=== PATIENT | male | born 1990 | race Caucasian/White ===

== ENCOUNTER 2016-04-20 13:24 | Emergency (ER) | payer OTHER ==
[~2016-04-20] VITALS: Ht 177.8 cm; Wt 84.1 kg
[~2016-04-20 13:24] MED LIST: BENT20TA PO; VIST25CA PO; ZOFR4TAB3 SL
[2016-04-20 13:26] VITALS: BP 130/78; PULSE 88; RESP 20; TEMP 98.4; O2SAT 96
--- NOTE | 2016-04-20 14:38 | PD ---
HPI Chief Complaint: Anxiety Time Seen by Provider: 14:38 Travel History International Travel<30 days: No Contact w/Intl Traveler<30days: No Traveled to known affect area: No History of Present Illness HPI 26-year-old male with history of anxiety, followed by the [facility], presents to the emergency department requesting Ativan for his anxiety. States that right now he is okay but feels as though his anxiety has been increasingly worse lately. Patient states that he used to take Ativan when he was in the [employer] but has not been on it for an extended amount of time. [facility]. Denies any suicidal homicidal ideations. Denies any illicit drug use. He has no other symptoms to report at this time. [facility] Past Medical History Anxiety: Yes Depression: Yes Cardiovascular Problems: Yes (PALPITATIONS) Diminished Hearing: No Social History Alcohol Use: Yes (MOSTLY WEEKEND DRINKING) Tobacco Use: Yes (1/2 ppd) Substance Use: Yes (METHADONE) Allergies-Medications (Allergen,Severity, Reaction): Coded Allergies: No Known Allergies (Unverified , 04/20/16) Reported Meds & Prescriptions Reported Meds & Active Scripts Active No Active Prescriptions or Reported Medications Review of Systems Except as stated in HPI: all other systems reviewed are Neg Physical Exam Narrative GENERAL: Well-nourished, well-developed patient, ambulatory and in no acute distress SKIN: Warm and dry. HEAD: Normocephalic. EYES: No scleral icterus. No injection or drainage. NECK: Supple, trachea midline. No JVD or lymphadenopathy. CARDIOVASCULAR: Regular rate and rhythm without murmurs, gallops, or rubs. RESPIRATORY: Breath sounds equal bilaterally. No accessory muscle use. GASTROINTESTINAL: Abdomen soft, non-tender, nondistended. MUSCULOSKELETAL: No cyanosis, or edema. BACK: Nontender without obvious deformity. No CVA tenderness. Data Data Last Documented VS Vital Signs Date Time Temp Pulse Resp B/P Pulse Ox O2 Delivery O2 Flow Rate FiO2 04/20/16 13:26 98.4 88 20 130/78 96 Room Air MDM Medical Decision Making Medical Screen Exam Complete: Yes Emergency Medical Condition: Yes Medical Record Reviewed: Yes Differential Diagnosis Anxiety versus mood disorder versus personality disorder versus adjustment reaction disorder v Narrative Course 26-year-old male presents to emergency department requesting Ativan for his anxiety. He has a follow-up appointment at the [facility] and he has not been on Ativan since the [employer] per his report. I explained to him that I would not be refilling or starting him on Ativan as needed for his anxiety here in the emergency department offered him Vistaril. He became very angry with me and told me "just give me gabapentin." I said I would not be giving him gabapentin for his anxiety either and the best thing for him to do the [facility]up [facility]. He states he does not want the Vistaril and he wanted to leave. He'll be discharged at this time. Diagnosis Primary Impression: Anxiety with limited-symptom attacks Referrals: [facility] (Out patient) Primary Care Physician Patient Instructions: Anxiety (ED), General Instructions Additional Instructions: It is important that you keep your appointment with the [facility] Contact today to see if you can get in before next week Return immediately to the emergency department with any acute worsening symptoms Med/Other Pt SpecificInfo: No Change to Meds Scripts No Active Prescriptions or Reported Meds Disposition: 01 DISCHARGE HOME Condition: Stable Tasha Ponce Apr 20, 2016 14:38
== END 2016-04-20 16:56 | disposition home or self-care (01) ==
LOC: NETRI 13:24
DX: F41.9 Anxiety disorder, unspecified (principal)
CPT/HCPCS: 99282

== ENCOUNTER 2016-06-16 14:32 | Emergency (ER) | payer OTHER ==
[~2016-06-16] VITALS: Ht 177.8 cm; Wt 89.5 kg
[2016-06-16 14:33] VITALS: BP 131/94; PULSE 99; RESP 18; TEMP 98.1; O2SAT 98
--- NOTE | 2016-06-16 14:43 | PD ---
Physical Exam Time Seen by Provider: 14:41 Narrative 26yo M requesting refill on Gabapentin rx. Last took yesterday. Takes for alcohol DT's. No other complaints. Patient stable. Patient seen in triage. Awaiting bed placement. Data Data Last Documented VS Vital Signs Date Time Temp Pulse Resp B/P Pulse Ox O2 Delivery O2 Flow Rate FiO2 06/16/16 14:33 98.1 99 18 131/94 98 MDM Supervised Visit with BLAKE: No Scripts No Active Prescriptions or Reported Meds Soumya Epstein Jun 16, 2016 14:43
--- NOTE | 2016-06-16 16:17 | PD ---
HPI . needs refill on gabapentin Chief Complaint: Medication Refill Request Time Seen by Provider: 16:12 Travel History International Travel<30 days: No Contact w/Intl Traveler<30days: No Traveled to known affect area: No History of Present Illness HPI 26 yr old male with chronic pain and hx of etoh abuse using gabapentin for DTs and chronic pain requesting refill on gabapentin. He says he ran out yesterday. He is trying to find a PCP as he just moved from [place]. He has no other complaints. PFSH Past Medical History Anxiety: Yes Depression: Yes Cardiovascular Problems: Yes (PALPITATIONS) Diminished Hearing: No Social History Alcohol Use: Yes (MOSTLY WEEKEND DRINKING) Tobacco Use: Yes (/ ppd) Substance Use: Yes (METHADONE) Allergies-Medications (Allergen,Severity, Reaction): Coded Allergies: No Known Allergies (Unverified , 06/16/16) Reported Meds & Prescriptions Reported Meds & Active Scripts Active Gabapentin 600 Mg Tab 600 Mg PO BID Reported Gabapentin 800 Mg Tab 800 Mg PO TID Review of Systems General / Constitutional: No: Fever Eyes: No: Visual changes HENT: No: Headaches Cardiovascular: No: Chest Pain or Discomfort Respiratory: No: Shortness of Breath Gastrointestinal: No: Abdominal Pain Genitourinary: No: Dysuria Musculoskeletal: No: Pain Skin: No Rash Neurologic: No: Weakness Psychiatric: No: Depression Endocrine: No: Polydipsia Hematologic/Lymphatic: No: Easy Bruising Physical Exam Narrative GENERAL: AAO x 3, no acute distress, Well-nourished, well-developed patient. SKIN: Warm and dry. No visible rashes or bruising. HEAD: Normocephalic and atraumatic. EYES: No scleral icterus. No injection or drainage. ENT: No nasal drainage noted. Mucous membranes pink. Airway patent. NECK: Supple, trachea midline. No JVD. CARDIOVASCULAR: Regular rate and rhythm without murmurs, gallops, or rubs. RESPIRATORY: Breath sounds equal bilaterally. No accessory muscle use. No rhonchi or rales. GASTROINTESTINAL: Visual inspection normal EXTREMITIES: No cyanosis or edema. BACK: Nontender without obvious deformity. No CVA tenderness. PSYCH: AAO x 3, normal affect. Data Data Last Documented VS Vital Signs Date Time Temp Pulse Resp B/P Pulse Ox O2 Delivery O2 Flow Rate FiO2 06/16/16 14:33 98.1 99 18 131/94 98 [facility] Medical Decision Making Medical Screen Exam Complete: Yes Emergency Medical Condition: Yes Medical Record Reviewed: Yes Differential Diagnosis medication refill, chronic pain, hx of DTs Narrative Course 26 yr old male with chronic pain and hx of etoh abuse using gabapentin for DTs and chronic pain requesting refill on gabapentin. He says he ran out yesterday. He is trying to find a PCP as he just moved from [place]. He has no other complaints. Patient seen and examined. I've explained to him that I will provide him with a short course of gabapentin. Ultimately he will need to establish with a primary care provider for further refills. He is hemodynamically stable and in no signs of distress. Actually has no complaints of pain etc. only requires a refill. Patient verbalized understanding of instructions, questions were answered, and thanked me for their care. I advised them if their condition worsens, please return to the nearest emergency room for further care. Diagnosis Primary Impression: Medication refill Patient Instructions: General Instructions Additional Instructions: Please return to emergency department if your symptoms return or worsen. Follow up with your primary care provider. Take medications as prescribed. Please establish with a primary care provider for further refills. Med/Other Pt SpecificInfo: Prescription(s) given Scripts Gabapentin 600 Mg [id number] Mg PO BID #20 TAB Ref 0 Prov:RomarioKaylyn DO 06/16/16 Disposition: 01 DISCHARGE HOME Condition: Stable Nikole Cordova Jun 16, 2016 16:17
[2016-06-16] MEDS ORDERED: GABA600T PO (16:19)
[2016-06-16] MEDS ORDERED: GABA800T PO (16:26)
== END 2016-06-16 16:37 | disposition home or self-care (01) ==
LOC: NEPK 14:32
DX: G89.29 Other chronic pain (principal); Z76.0 Encounter for issue of repeat prescription; F10.10 Alcohol abuse, uncomplicated; F17.210 Nicotine dependence, cigarettes, uncomplicated
CPT/HCPCS: 99281

== ENCOUNTER 2016-06-24 09:32 | Emergency (ER) | payer OTHER ==
[~2016-06-24] VITALS: Ht 177.8 cm; Wt 89.0 kg
[~2016-06-24 09:32] MED LIST changes: -BENT20TA PO; +GABA600T PO; +GABA800T PO; -VIST25CA PO; -ZOFR4TAB3 SL
[2016-06-24 09:34] VITALS: BP 138/79; PULSE 84; RESP 20; TEMP 98.6; O2SAT 96
[2016-06-24] MEDS ORDERED: GABA600T PO (09:56)
[2016-06-24] MEDS ORDERED: MOME17I EACH NARE (09:56)
--- NOTE | 2016-06-24 09:59 | PD ---
HPI Chief Complaint: Cold / Flu Symptoms Time Seen by Provider: 09:52 Travel History International Travel<30 days: No Contact w/Intl Traveler<30days: No Traveled to known affect area: No History of Present Illness HPI 26-year-old male presents to the emergency Department with complaint of left- sided nasal congestion 4 days. He is also requesting a medication refill on gabapentin; he says he takes it to keep him from drinking alcohol. Denies cough , sore throat, ear pain. Denies fever, chills, nausea, vomiting. Denies sinus pressure. Has not taken any medications or tried any treatments to alleviate his symptoms. No known aggravating or relieving factors. Says he has an appointment with primary care provider in one week and has one day left of his gabapentin. Says his gabapentin was refilled last time he was here. Denies current alcohol use. No known allergies. No medical complaints. No other modifying factors or associated signs and symptoms. PFSH Past Medical History Anxiety: Yes Depression: Yes Cardiovascular Problems: Yes (PALPITATIONS) Diminished Hearing: No Social History Alcohol Use: Yes (MOSTLY WEEKEND DRINKING) Tobacco Use: Yes (1/2 ppd) Substance Use: Yes (METHADONE) Allergies-Medications (Allergen,Severity, Reaction): Coded Allergies: No Known Allergies (Unverified , 06/24/16) Reported Meds & Prescriptions Reported Meds & Active Scripts Active Nasonex Nasal [place] (Mometasone Furoate) 50 Mcg/Act Naspr 2 [place] EACH NARE DAILY PRN Gabapentin 600 Mg Tab 600 Mg PO BID Reported Gabapentin 800 Mg Tab 800 Mg PO TID Review of Systems Except as stated in HPI: all other systems reviewed are Neg Physical Exam Narrative GENERAL: Well-nourished, well-developed male patient, in no acute distress SKIN: Warm and dry. No rash. HEAD: Atraumatic. Normocephalic. No Frontal and maxillary tenderness sinus on palpation. EYES: Pupils equal and round at 3 mm with brisk reaction. No scleral icterus. No injection or drainage. PERRLA. ENT: Mucosa pink and moist. Oropharynx without erythema, exudates, tonsillar edema.. No uvular edema. No uvular, palatal, or tonsillar deviation. Airway patent. Nasal turbinates appear normal without nasal blood, purulent drainage or septal hematoma. EARS: Bilateral pinnae and external canals appear within normal limits. Bilateral tympanic membranes without erythema, dullness or perforation. NECK: Trachea midline. No lymphadenopathy. CARDIOVASCULAR: Regular rate and rhythm. No murmur appreciated. RESPIRATORY: No accessory muscle use. Clear to auscultation. Breath sounds equal bilaterally. GASTROINTESTINAL: Abdomen soft, non-tender, nondistended. Hepatic and splenic margins not palpable. Bowel sounds are active 4 quadrants. MUSCULOSKELETAL: No obvious deformities. No clubbing. No cyanosis. No edema. NEUROLOGICAL: Awake and alert. Oriented 3. No obvious cranial nerve deficits. Motor grossly within normal limits. Normal speech. Moves all extremities. 5/5 strength to all extremities. PSYCHIATRIC: Appropriate mood and affect; insight and judgment normal. Data Data Last Documented VS Vital Signs Date Time Temp Pulse Resp B/P Pulse Ox O2 Delivery O2 Flow Rate FiO2 06/24/16 09:34 98.6 84 20 138/79 96 Room Air MDM Medical Decision Making Medical Screen Exam Complete: Yes Emergency Medical Condition: Yes Medical Record Reviewed: Yes Differential Diagnosis Nasal congestion, allergic rhinitis, sinusitis, medication refill Narrative Course 26-year-old male was left nostril nasal congestion 4 days. He is afebrile and nontoxic-appearing. Denies sinus pressure and there is no maxillary or frontal sinus tenderness on palpation. Patient is also requesting refill on gabapentin. He has an appointment with primary care provider in one week and has one day left of his gabapentin. Nasonex nasal spray and gabapentin prescribed for home. Instructed patient to follow up at PCP appointment as scheduled. Patient verbalizes understanding and agreement with treatment plan. Patient is medically cleared and stable for discharge. Discussed reasons to return to the emergency department. Instructed patient to follow up with primary care provider. Patient agrees with treatment plan. The patients vital signs are stable and the patient is stable for outpatient follow-up and treatment. Patient discharged home, stable and in no acute distress. Diagnosis Primary Impression: Nasal congestion Additional Impression: Medication refill Referrals: Primary Care Physician Patient Instructions: General Instructions, Medication Refill, ED, Sinusitis ( ED) Departure Forms: Tests/Procedures, Work Release Enter return to work date: Jun 24, 2016 Additional Instructions: Nasonex nasal spray as prescribed. Ibuprofen or Tylenol as instructed and as needed for fever/pain [id number] cough and cold medications as directed and as needed for symptom management Get plenty of sleep/rest Drink plenty of fluids to prevent dehydration; popsicles and Gatorade Use an air humidifier/turn off ceiling fans Follow-up with primary care provider Return immediately to the emergency department with worsening of symptoms Med/Other Pt SpecificInfo: Prescription(s) given Scripts Mometasone Nasal [place] (Nasonex Nasal [place])50 Mcg/Act Naspr2 [place] EACH NARE DAILY PRN (NASAL CONGESTION) #1 BOTTLE Ref 0 Prov:Soumya Epstein 06/24/16 Gabapentin 600 Mg [id number] Mg PO BID #20 TAB Ref 0 Prov:Soumya Epstein 06/24/16 Disposition: 01 DISCHARGE HOME Condition: Stable Soumya Epstein Jun 24, 2016 09:58
== END 2016-06-24 10:04 | disposition home or self-care (01) ==
LOC: NEPK 09:32
DX: R09.81 Nasal congestion (principal); F17.200 Nicotine dependence, unspecified, uncomplicated; Z76.0 Encounter for issue of repeat prescription; Z86.59 Personal history of other mental and behavioral disorders; Z86.79 Personal history of other diseases of the circulatory system
CPT/HCPCS: 99283

== ENCOUNTER 2016-07-16 06:30 | Emergency (ER) | payer OTHER ==
[~2016-07-16] VITALS: Ht 177.8 cm; Wt 88.6 kg
[~2016-07-16 06:30] MED LIST changes: +MOME17I EACH NARE
[2016-07-16 06:31] VITALS: BP 139/75; PULSE 90; RESP 20; TEMP 99; O2SAT 97
--- NOTE | 2016-07-16 07:13 | PD ---
HPI Chief Complaint: Cold / Flu Symptoms Time Seen by Provider: 06:58 Travel History International Travel<30 days: No Contact w/Intl Traveler<30days: No Traveled to known affect area: No History of Present Illness HPI 26yo M with no significant PMH presents to the ED with c/o nasal congestion, throat pain, cough, generalized muscle ache. Denies any fever, chest pain, sob , abdominal pain, focal weakness or numbness. Pt is requesting refill for gabapentin. I reviewed his records and he has just been here 06/17/16 and and have gotten refills for gabapentin both times. Informed pt that he has to follow up with his PMD for refill and follow up. Pt states that he has insurance and and informed him that he needs to follow up. PFSH Past Medical History Anxiety: Yes Depression: Yes Cardiovascular Problems: Yes (PALPITATIONS) Diminished Hearing: No Neurologic: Yes (NERVE PAIN) Social History Alcohol Use: Yes (MOSTLY WEEKEND DRINKING) Tobacco Use: Yes (1/2 ppd) Substance Use: Yes (METHADONE) Allergies-Medications (Allergen,Severity, Reaction): Coded Allergies: No Known Allergies (Unverified , 07/16/16) Reported Meds & Prescriptions Reported Meds & Active Scripts Active Nasonex Nasal [place] (Mometasone Furoate) 50 Mcg/Act Naspr 2 [place] EACH NARE DAILY PRN Gabapentin 600 Mg Tab 600 Mg PO BID Reported Gabapentin 800 Mg Tab 800 Mg PO TID Review of Systems Except as stated in HPI: all other systems reviewed are Neg Physical Exam Narrative GENERAL: 26yo M not in distress. SKIN: Focused skin assessment warm/dry. HEAD: Atraumatic. Normocephalic. EYES: Pupils equal and round at 3mm bilaterally. No scleral icterus. No injection or drainage. ENT: Throat: Clear. Uvula midline. No erythema or exudate. Ears: +Cerumen impaction. NECK: Trachea midline. No JVD. CARDIOVASCULAR: Regular rate and rhythm. No murmur appreciated. RESPIRATORY: No accessory muscle use. Clear to auscultation. Breath sounds equal bilaterally. GASTROINTESTINAL: Abdomen soft, non-tender, nondistended. MUSCULOSKELETAL: No obvious deformities. No clubbing. No cyanosis. No edema. NEUROLOGICAL: Awake and alert. No obvious cranial nerve deficits. Motor grossly within normal limits. Normal speech. PSYCHIATRIC: Appropriate mood and affect; insight and judgment normal. Data Data Last Documented VS Vital Signs Date Time Temp Pulse Resp B/P Pulse Ox O2 Delivery O2 Flow Rate FiO2 07/16/16 06:31 99.0 90 20 139/75 97 Orders Ondansetron Odt (Zofran Odt) (07/16/16 07:15) Ibuprofen (Motrin) (07/16/16 07:15) Guaifenesin Liq (Robitussin Liq) (07/16/16 07:15) MDM Medical Decision Making Medical Screen Exam Complete: Yes Emergency Medical Condition: Yes Differential Diagnosis URI vs. medication refill vs. flu like symptoms Narrative Course 26yo well appearing male here with URI symptoms. Pt is really more interested in getting his gabapentin refilled. I reviewed his records and he has already had 2 prescriptions from 2 different ED visits just last month. Pt had access to primary care as he stated that he has medicaid and needs to address this in the outpatient setting. Vital signs stable. Pt is afebrile and not in distress. Pt given zofran, ibuprofen and robitussin for symptomatic treatment. Pt reevaluated after medications and feels better. Pt tolerating PO. Return precautions given. Diagnosis Primary Impression: URI (upper respiratory infection) Qualified Code: J06.9 - Upper respiratory tract infection, unspecified type Patient Instructions: General Instructions Departure Forms: Tests/Procedures Additional Instructions: Please follow up with your PMD in 3-7 days. Return to the ED if symptoms worsen. Med/Other Pt SpecificInfo: Prescription(s) given, No Change to Meds Scripts Acetaminophen (Acetaminophen Extra Strength)500 Mg Zpl120 Mg PO Q6H PRN (PAIN SCALE 1 TO 4) #20 TAB Ref 0 Prov:Kaylyn Doss DO 07/16/16 Dextromethorphan Polistirex Liq (Robitussin 12 Hour Cough Liq)30 Mg/5 Ml Sus10 Ml PO Q12H PRN (COUGH) 5 Days Ref 0 Prov:Kaylyn Doss DO 07/16/16 Disposition: 01 DISCHARGE HOME Condition: Stable Kaylyn Doss DO July 16, 2016 07:13
[2016-07-16] MEDS ORDERED: IBUPROFEN 600 MG TAB PO ONE (07:15)
[2016-07-16] MEDS ORDERED: ONDANSETRON ODT 4 MG TAB PO ONE (07:15)
[2016-07-16] MEDS ORDERED: guaiFENesin SOLUTION 200 MG/10 ML CUP PO ONE (07:15)
[2016-07-16] MEDS ORDERED: DEXT1SUS PO (09:03)
[2016-07-16] MEDS ORDERED: ACET500T36 PO (09:03)
== END 2016-07-16 09:13 | disposition home or self-care (01) ==
LOC: NEPE 06:30
DX: J06.9 Acute upper respiratory infection, unspecified (principal); F17.200 Nicotine dependence, unspecified, uncomplicated
CPT/HCPCS: 99283

== ENCOUNTER 2016-10-14 10:09 | Emergency (ER) | payer OTHER ==
[~2016-10-14] VITALS: Ht 180.3 cm; Wt 84.0 kg
[~2016-10-14 10:09] MED LIST changes: +ACET500T36 PO; +DEXT1SUS PO
[2016-10-14 10:14] VITALS: BP 116/59; PULSE 83; RESP 15; TEMP 98.2; O2SAT 98
[2016-10-14] MEDS ORDERED: IBUPROFEN 800 MG TAB PO ONE (10:30)
[2016-10-14] MEDS ORDERED: IBUP800T23 PO (10:33)
--- NOTE | 2016-10-14 10:34 | PD ---
HPI Chief Complaint: Injury Time Seen by Provider: 10:29 Travel History International Travel<30 days: No Contact w/Intl Traveler<30days: No Traveled to known affect area: No History of Present Illness HPI 25-year-old male presents to the emergency department complaint of right wrist pain after wrestling around with somebody and injuring it. Denies paresthesias , loss of sensation to the affected extremity. Has not taken any medications or [place] Symptoms are mild in severity. No known allergies. Has no other medical complaints. No other modifying factors or associated signs and symptoms. PFSH Past Medical History Anxiety: Yes Depression: Yes Cardiovascular Problems: Yes (PALPITATIONS) Diminished Hearing: No Neurologic: Yes (NERVE PAIN) Social History Alcohol Use: Yes (MOSTLY WEEKEND DRINKING) Tobacco Use: Yes (1/2 ppd) Substance Use: Yes (METHADONE) Allergies-Medications (Allergen,Severity, Reaction): Coded Allergies: No Known Allergies (Unverified , 10/14/16) Reported Meds & Prescriptions Reported Meds & Active Scripts Active Ibuprofen 800 Mg Tab 800 Mg PO Q6HR PRN Nasonex Nasal [place] (Mometasone Furoate) 50 Mcg/Act Naspr 2 [place] EACH NARE DAILY PRN Gabapentin 600 Mg Tab 600 Mg PO BID Reported Gabapentin 800 Mg Tab 800 Mg PO TID Review of Systems Except as stated in HPI: all other systems reviewed are Neg Physical Exam Narrative GENERAL: Well-nourished, well-developed male patient, in no acute distress SKIN: Warm and dry. HEAD: Atraumatic. Normocephalic. EYES: Pupils equal and round. No scleral icterus. No injection or drainage. ENT: Mucosa pink and moist. Airway patent. NECK: Trachea midline. CARDIOVASCULAR: Regular rate. RESPIRATORY: No accessory muscle use. GASTROINTESTINAL: Flat. MUSCULOSKELETAL: Right wrist with tenderness on palpation; no erythema ; no edema; full range of motion. Right hand with full range of motion at all joints. Right upper extremity is supple and non-tense with 2+ radial pulse and sensory intact. No obvious deformities. No clubbing. No cyanosis. NEUROLOGICAL: Awake and alert. Oriented 3. No obvious cranial nerve deficits. Motor grossly within normal limits. Normal speech. PSYCHIATRIC: Appropriate mood and affect; insight and judgment normal. Data Data Last Documented VS Vital Signs Date Time Temp Pulse Resp B/P Pulse Ox O2 Delivery O2 Flow Rate FiO2 10/14/16 10:14 98.2 83 15 116/59 98 Orders Wrist, Complete ([id number]) (10/14/16 10:26) Ibuprofen (Motrin) (10/14/16 10:30) MDM Medical Decision Making Medical Screen Exam Complete: Yes Emergency Medical Condition: Yes Medical Record Reviewed: Yes Differential Diagnosis Sprain, fracture, injury Narrative Course 26-year-old male with right wrist injury. Ibuprofen administered in the ER. Ice pack provided. Right wrist x-ray ordered. 1116: Right wrist x-ray concludes: Last 24 hours Impressions Wrist X-Ray 10/14/16 1026 Signed Impressions: Service Date/Time: Friday, October 14, 2016 11:12 - CONCLUSION: Negative trauma study. Mika Funk MD Velcro wrist splint provided for support. Ibuprofen prescribed for home. Instructed patient to follow up with primary care provider. Patient verbalizes understanding and agreement with treatment plan. Patient is medically cleared and stable for discharge. Discussed reasons to return to the emergency department. Patient agrees with treatment plan. The patients vital signs are stable and the patient is stable for outpatient follow-up and treatment. Patient discharged home, stable and in no acute distress. Diagnosis Primary Impression: Right wrist sprain Qualified Code: S63.501A - Sprain of right wrist, initial encounter Referrals: Primary Care Physician Patient Instructions: General Instructions, Wrist Sprain (ED) Departure Forms: Tests/Procedures, Work Release Enter return to work date: Oct 21, 2016 Additional Instructions: Tylenol or ibuprofen as directed and as needed to reduce pain Rest, ice, compress, and elevate extremity to decrease pain and inflammation Elvin wrap for support Wrist Splint for support Avoid aggravating activity; increase activity as tolerated Follow-up with primary care provider Return to the emergency department immediately with worsening symptoms Med/Other Pt SpecificInfo: Prescription(s) given Scripts Ibuprofen 800 Mg [id number] Mg PO Q6HR PRN (PAIN) #30 TAB Ref 0 Prov:Soumya Epstein 10/14/16 Disposition: 01 DISCHARGE HOME Condition: Stable Soumya Epstein Oct 14, 2016 10:34
--- NOTE | 2016-10-14 11:09 | RADRPT ---
EXAM DATE/TIME: 10/14/2016 11:12 [facility] COMPARISON: No previous studies available for comparison. INDICATIONS : Right wrist pain after landing wrong on a fall. MEDICAL HISTORY : None. SURGICAL HISTORY : None. ENCOUNTER: Initial ACUITY: 1 day PAIN SCORE: 10 LOCATION: Right wrist FINDINGS: Three view examination of the right wrist demonstrates no soft tissue swelling, dislocation, or fract ure. The carpal bones are in normal alignment. The joint spaces are maintained. Bony mineralizatio n is normal. CONCLUSION: Negative trauma study. Mika Funk MD on October 14, 2016 at 11:07 Board Certified Radiologist. This report was verified electronically.
== END 2016-10-14 12:04 | disposition home or self-care (01) ==
LOC: NEPK 10:09
DX: S63.501A Unspecified sprain of right wrist, initial encounter (principal); F41.9 Anxiety disorder, unspecified; F32.9 Major depressive disorder, single episode, unspecified; R00.2 Palpitations; F17.200 Nicotine dependence, unspecified, uncomplicated; Y93.72 Activity, wrestling; Z79.899 Other long term (current) drug therapy
CPT/HCPCS: 73110; 99283; L3908

== ENCOUNTER 2016-10-16 16:46 | Emergency (ER) | payer OTHER ==
[~2016-10-16 16:46] MED LIST changes: -ACET500T36 PO; -DEXT1SUS PO; +IBUP800T23 PO
[2016-10-16 16:49] VITALS: BP 134/95; PULSE 73; RESP 15; TEMP 97.9; O2SAT 99
[2016-10-16] MEDS ORDERED: chlordiazePOXIDE 25 MG CAP PO STA (17:55)
[2016-10-16] MEDS ORDERED: SODIUM CHLORIDE 0.9% FLUSH 10 ML FLUSH IVF PRN (18:00)
[2016-10-16 19:24] LABS: AUTOMATED NEUTROPHIL # 3.5 TH/MM3 (1.8-7.7); BASOPHIL # 0.1 TH/MM3 (0-0.2); BASOPHIL % 0.7 % (0.0-2.0); EOSINOPHIL # 0.4 TH/MM3 (0-0.4); EOSINOPHIL % 5.8 % (0.0-4.0); HEMATOCRIT 33.7 % (39.0-51.0); HEMO FLAGS DIFF FINAL; LYMPH % 35.5 % (9.0-44.0); LYMPHOCYTE # 2.5 TH/MM3 (1.0-4.8); MEAN CELL VOLUME 88.6 FL (80.0-100.0); MEAN CORPUSCULAR HEMOGLOBIN 29.6 PG (27.0-34.0); MEAN CORPUSCULAR HGB CONC 33.5 % (32.0-36.0); MONO % 8.5 % (0.0-8.0); NEUT % 49.5 % (16.0-70.0); PLATELET COUNT 140 TH/MM3 (150-450); RED CELL DISTRIBUTION WIDTH 13.6 % (11.6-17.2); WHITE BLOOD COUNT 7.1 TH/MM3 (4.0-11.0)
--- NOTE | 2016-10-16 19:30 | PD ---
HPI Chief Complaint: Seizure Time Seen by Provider: 17:46 Travel History International Travel<30 days: No Contact w/Intl Traveler<30days: No Traveled to known affect area: No History of Present Illness HPI Patient is a 26-year-old male who comes in complaining of seizure activity. He says he has had several seizures over the past 2 days due to benzodiazepine withdrawal. He says he usually takes 2 mg of Xanax several times a day. He has not had a prescription, and has been taking his roommates. However his roommate has run out of the Xanax. He was seen at [facility] 2 days ago and was diagnosed with a scaphoid fracture. He has a splint on his hand. He says he did not tell them about the seizures at that time. He says he is worried about withdrawal. He says he feels unwell and shaky. He denies chest pain or fevers. He denies headache or blurred vision. He denies nausea or vomiting. PFSH Past Medical History Anxiety: Yes Depression: Yes Cardiovascular Problems: Yes (PALPITATIONS) Diminished Hearing: No Medical other: Yes (OPIATES DEPENDENT /ON METHADONE) Neurologic: Yes (NERVE PAIN) Tetanus Vaccination: < 5 Years Influenza Vaccination: No Past Surgical History Surgical History: No Previous Surgery Social History Alcohol Use: Yes (MOSTLY WEEKEND DRINKING) Tobacco Use: Yes (1/2 ppd) Substance Use: Yes (METHADONE, opiates dependent ) Allergies-Medications (Allergen,Severity, Reaction): Coded Allergies: No Known Allergies (Unverified , 10/16/16) Reported Meds & Prescriptions Reported Meds & Active Scripts Active Ibuprofen 800 Mg Tab 800 Mg PO Q6HR PRN Nasonex Nasal [place] (Mometasone Furoate) 50 Mcg/Act Naspr 2 [place] EACH NARE DAILY PRN Gabapentin 600 Mg Tab 600 Mg PO BID Reported Gabapentin 800 Mg Tab 800 Mg PO TID Review of Systems Except as stated in HPI: all other systems reviewed are Neg General / Constitutional: No: Fever, Chills Eyes: No: Blurred Vision HENT: No: Headaches, Lightheadedness Cardiovascular: No: Chest Pain or Discomfort Respiratory: No: Shortness of Breath Gastrointestinal: No: Nausea, Vomiting, Abdominal Pain Genitourinary: No: Urgency, Dysuria Musculoskeletal: Positive: Pain Skin: No Rash, No Change in Pigmentation Neurologic: Positive: Tremor Physical Exam Narrative GENERAL: Awake and alert, in no acute distress. SKIN: Focused skin assessment warm/dry. Old ecchymosis under the left eye. HEAD: Atraumatic. Normocephalic. EYES: Pupils equal and round. No scleral icterus. Extraocular movements intact. ENT: Mucous membranes pink and moist. NECK: Trachea midline. No JVD. CARDIOVASCULAR: Regular rate and rhythm. No murmur appreciated. RESPIRATORY: No accessory muscle use. Clear to auscultation. Breath sounds equal bilaterally. GASTROINTESTINAL: Abdomen soft, non-tender, nondistended. MUSCULOSKELETAL: No obvious deformities. No clubbing. No cyanosis. No edema. NEUROLOGICAL: Awake and alert. No obvious cranial nerve deficits. Motor grossly within normal limits. Normal speech. PSYCHIATRIC: Appropriate mood and affect; insight and judgment normal. Data Data Last Documented VS Vital Signs Date Time Temp Pulse Resp B/P (MAP) Pulse Ox O2 Delivery O2 Flow Rate FiO2 10/16/16 18:20 Room Air 10/16/16 16:49 97.9 73 15 134/95 (108) 99 Orders Orders Complete Blood Count With Diff (10/16/16 17:55) Drug Screen, Random Urine (10/16/16 17:55) Ct Brain W/O Iv Contrast(Rout) (10/16/16 ) Blood Glucose (10/16/16 17:55) Ecg Monitoring (10/16/16 17:55) Iv Access Insert/Monitor (10/16/16 17:55) Oximetry (10/16/16 17:55) Comprehensive Metabolic Panel (10/16/16 17:55) Sodium Chloride 0.9% Flush (Ns Flush) (10/16/16 18:00) Chlordiazepoxide (Librium) (10/16/16 17:55) Labs Laboratory Tests Test 10/16/16 18:30 10/16/16 18:35 White Blood Count 7.1 TH/MM3 Red Blood Count 3.80 MIL/MM3 Hemoglobin 11.3 GM/DL Hematocrit 33.7 % Mean Corpuscular Volume 88.6 FL Mean Corpuscular Hemoglobin 29.6 PG Mean Corpuscular Hemoglobin Concent 33.5 % Red Cell Distribution Width 13.6 % Platelet Count 140 TH/MM3 Mean Platelet Volume 11.3 FL Neutrophils (%) (Auto) 49.5 % Lymphocytes (%) (Auto) 35.5 % Monocytes (%) (Auto) 8.5 % Eosinophils (%) (Auto) 5.8 % Basophils (%) (Auto) 0.7 % Neutrophils # (Auto) 3.5 TH/MM3 Lymphocytes # (Auto) 2.5 TH/MM3 Monocytes # (Auto) 0.6 TH/MM3 Eosinophils # (Auto) 0.4 TH/MM3 Basophils # (Auto) 0.1 TH/MM3 CBC Comment DIFF FINAL Differential Comment MDM Medical Decision Making Medical Screen Exam Complete: Yes Emergency Medical Condition: Yes Medical Record Reviewed: Yes Differential Diagnosis Seizure versus withdrawal versus drug-seeking behavior Narrative Course Patient is a 26-year-old male comes in complaining of seizure activity. He says he is going through withdrawal from benzodiazepines. Currently he does not appear tremulous. IV established, labs sent. Patient given Librium. CT of the head ordered. I explained to the patient that he will need to be admitted for this and he will not be given a prescription for benzodiazepines today. He is agreeing to be admitted. Patient signed out to Dr. Self to follow up testing and disposition the patient. Diagnosis Primary Impression: Withdrawal complaint Condition: Stable Anita Corbett MD Oct 16, 2016 19:30
--- NOTE | 2016-10-16 19:30 | RADRPT ---
EXAM DATE/TIME: 10/16/2016 19:00 [facility] COMPARISON: CT BRAIN W/O CONTRAST, December 20, 2015, 14:47. INDICATIONS : Trauma, seizure and hit head. RADIATION DOSE: 48.89 CTDIvol (mGy) MEDICAL HISTORY : Cardiovascular disease. Substance abuse. SURGICAL HISTORY : None. ENCOUNTER: Initial ACUITY: 1 day PAIN SCALE: 6/10 LOCATION: cranial TECHNIQUE: Multiple contiguous axial images were obtained of the head. Using automated exposure control and adj ustment of the mA and/or kV according to patient size, radiation dose was kept as low as reasonably a chievable to obtain optimal diagnostic quality images. DICOM format image data is available electro nically for review and comparison. FINDINGS: There is no evidence for intracranial hemorrhage, mass effect, mass lesions, edema, or extra-axial fl uid collections. The visualized bony structures appear intact. The ventricles are normal size for t he patient's age. There are no signs of acute infarction for technique. CONCLUSION: Unremarkable study. Elvira Soliman MD on October 16, 2016 at 19:27 Board Certified Radiologist. This report was verified electronically.
[2016-10-16 19:41] LABS: ANION GAP 5 MEQ/L (5-15); AST (GOT) 32 U/L (15-37); BICARBONATE 29.9 MEQ/L (21.0-32.0); BLOOD UREA NITROGEN 11 MG/DL (7-18); CHLORIDE 102 MEQ/L (98-107); GLOMERULAR FILTRATION RATE 95 ML/MIN (>89); POTASSIUM 3.6 MEQ/L (3.5-5.1); SODIUM (NA) 137 MEQ/L (136-145)
[2016-10-16 19:42] LABS: ALT (GPT) 53 U/L (12-78)
[2016-10-16 19:44] LABS: ALKALINE PHOSPHATASE 136 U/L (45-117); TOTAL BILIRUBIN ADULT 0.4 MG/DL (0.2-1.0)
--- NOTE | 2016-10-16 20:07 | PD ---
Physical Exam Date Seen by Provider: Oct 16, 2016 Narrative Care was assumed from Dr. Corbett at 7 PM. Patient is being seen for benzodiazepine withdrawal seizures. The patient states that he has been taking Xanax 2 mg 5-6 times per day until about 3 days ago. He is using his roommates Xanax. His roommate has run out of Xanax. The patient states that he started having seizures approximately 24 hours after the last dose of Xanax. He reports several seizures with falls has a resultant right scaphoid fracture and contusions to the left periorbital region. He states that he feels generally unwell. He states that his symptoms have improved with Librium which was given earlier in his emergency department course. Data Data Last Documented VS Vital Signs Date Time Temp Pulse Resp B/P (MAP) Pulse Ox O2 Delivery O2 Flow Rate FiO2 10/16/16 20:23 50 18 134/69 (90) 100 10/16/16 18:20 Room Air 10/16/16 16:49 97.9 Orders Orders Complete Blood Count With Diff (10/16/16 17:55) Drug Screen, Random Urine (10/16/16 17:55) Ct Brain W/O Iv Contrast(Rout) (10/16/16 ) Blood Glucose (10/16/16 17:55) Ecg Monitoring (10/16/16 17:55) Iv Access Insert/Monitor (10/16/16 17:55) Oximetry (10/16/16 17:55) Comprehensive Metabolic Panel (10/16/16 17:55) Sodium Chloride 0.9% Flush (Ns Flush) (10/16/16 18:00) Chlordiazepoxide (Librium) (10/16/16 17:55) Labs Laboratory Tests Test 10/16/16 18:30 10/16/16 18:35 White Blood Count 7.1 TH/MM3 Red Blood Count 3.80 MIL/MM3 Hemoglobin 11.3 GM/DL Hematocrit 33.7 % Mean Corpuscular Volume 88.6 FL Mean Corpuscular Hemoglobin 29.6 PG Mean Corpuscular Hemoglobin Concent 33.5 % Red Cell Distribution Width 13.6 % Platelet Count 140 TH/MM3 Mean Platelet Volume 11.3 FL Neutrophils (%) (Auto) 49.5 % Lymphocytes (%) (Auto) 35.5 % Monocytes (%) (Auto) 8.5 % Eosinophils (%) (Auto) 5.8 % Basophils (%) (Auto) 0.7 % Neutrophils # (Auto) 3.5 TH/MM3 Lymphocytes # (Auto) 2.5 TH/MM3 Monocytes # (Auto) 0.6 TH/MM3 Eosinophils # (Auto) 0.4 TH/MM3 Basophils # (Auto) 0.1 TH/MM3 CBC Comment DIFF FINAL Differential Comment Blood Urea Nitrogen 11 MG/DL Creatinine 0.97 MG/DL Random Glucose 83 MG/DL Total Protein 7.3 GM/DL Albumin 4.1 GM/DL Calcium Level 8.5 MG/DL Alkaline Phosphatase 136 U/L Aspartate Amino Transf (AST/SGOT) 32 U/L Alanine Aminotransferase (ALT/SGPT) 53 U/L Total Bilirubin 0.4 MG/DL Sodium Level 137 MEQ/L Potassium Level 3.6 MEQ/L Chloride Level 102 MEQ/L Carbon Dioxide Level 29.9 MEQ/L Anion Gap 5 MEQ/L Estimat Glomerular Filtration Rate 95 ML/MIN Urine Opiates Screen NEG Urine Barbiturates Screen NEG Urine Amphetamines Screen NEG Urine Benzodiazepines Screen POS Urine Cocaine Screen POS Urine Cannabinoids Screen NEG MDM Supervised Visit with BLAKE: No Narrative Course CBC & BMP Diagram 10/16/16 18:30 Total Protein 7.3, Albumin 4.1, Calcium Level 8.5, Alkaline Phosphatase 136 H, Aspartate Amino Transf (AST/SGOT) 32, Alanine Aminotransferase (ALT/SGPT) 53, Total Bilirubin 0.4 CT of his head was negative for acute process. Urine drug screen is positive for benzodiazepines and cocaine. UpToDate was queried. It recommends gradual tapering of benzodiazepines. Physician Communication Physician Communication Case discussed with Dr. Powell he does not believe that this patient needs to be admitted to the hospital. Diagnosis Primary Impression: Withdrawal complaint Referrals: Primary Care Physician Patient Instructions: General Instructions Additional Instruction: Follow-up with either your primary care physician or B[facility] Campos for detoxification. Disposition: 01 DISCHARGE HOME Condition: Stable Tara Self MD Oct 16, 2016 20:07
[2016-10-16 20:23] VITALS: BP 134/69; PULSE 50; RESP 18; O2SAT 100
[2016-10-17] MEDS ORDERED: METH40TA2 PO (20:12)
[2016-10-17] MEDS ORDERED: DIAZ5 PO (20:59)
== END 2016-10-16 21:22 | disposition home or self-care (01) ==
LOC: NEPC 16:46
DX: F14.23 Cocaine dependence with withdrawal (principal); F41.9 Anxiety disorder, unspecified; F32.9 Major depressive disorder, single episode, unspecified; Z79.899 Other long term (current) drug therapy; F17.200 Nicotine dependence, unspecified, uncomplicated
CPT/HCPCS: 70450; 80053; 80307; 85025

== ENCOUNTER 2016-10-17 17:26 | Emergency (ER) | payer OTHER ==
[~2016-10-17] VITALS: Ht 180.3 cm; Wt 85.0 kg
[2016-10-17 17:28] VITALS: BP 136/83; PULSE 80; RESP 20; TEMP 98.7; O2SAT 100
--- NOTE | 2016-10-17 19:35 | PD ---
Physical Exam Date Seen by Provider: Oct 17, 2016 Time Seen by Provider: 19:32 Narrative 26 y/o male here with Hx. Seizure Disorder who was seen yesterday. Patient was supposed to go to [facility] for Detox, but was unable to get in as he does not have an ID. Hi room mate is unable to watch him as he left town. Patient afraid of having seizure and dieing. Also needs splint/cast on Right wrist. Vital Signs reviewed. Patient is Stable and awaiting Bed Placement. Data Data Last Documented VS Vital Signs Date Time Temp Pulse Resp B/P (MAP) Pulse Ox O2 Delivery O2 Flow Rate FiO2 10/17/16 17:28 98.7 80 20 136/83 (100) 100 Room Air [facility] Medical Record Reviewed: Yes Supervised Visit with BLAKE: Yes Condition: Stable Arash Henderson Oct 17, 2016 19:35
[2016-10-17 20:08] VITALS: BP 128/78; PULSE 65; RESP 18; O2SAT 99
[2016-10-17] MEDS ORDERED: METH40TA2 PO (20:12)
--- NOTE | 2016-10-17 20:28 | PD ---
HPI Chief Complaint: Medical Clearance Time Seen by Provider: 20:05 Travel History International Travel<30 days: No Contact w/Intl Traveler<30days: No Traveled to known affect area: No History of Present Illness HPI 26 year old male presents to the emergency department for evaluation of withdrawal from Xanax. Patient was seen yesterday for the same. Patient states that he had a seizure 3 days ago at [facility]. He was diagnosed with a fractured wrist at that time. He states he was seen here yesterday after he had another seizure. He was worked up and discharged home. He states he went to [facility] today but they declined him because he did not have an ID. He is concerned that he had another seizure home today. He states that he has been taking Xanax 2 mg tablets 6 times daily for several months. He states that he was getting up from his roommates and they are not prescribed to him. He states his roommate went on vacation he no longer has any Xanax at home. Patient states that he does not use any other illicit drugs , that he was positive for cocaine yesterday. Patient denies any other complaints at this time. [facility] Past Medical History Anxiety: Yes Depression: Yes Cardiovascular Problems: Yes (PALPITATIONS) Diminished Hearing: No Neurologic: Yes (NERVE PAIN) Past Surgical History Surgical History: No Previous Surgery Social History Alcohol Use: No Tobacco Use: Yes (1/2 ppd) Substance Use: Yes (METHADONE, opiates dependent ) Allergies-Medications (Allergen,Severity, Reaction): Coded Allergies: No Known Allergies (Unverified , 10/17/16) Reported Meds & Prescriptions Reported Meds & Active Scripts Active Valium (Diazepam) 5 Mg Tab 5 Mg PO BID PRN Reported Methadose (Methadone HCl) 40 Mg Tab 160 Mg PO DAILY Review of Systems Except as stated in HPI: all other systems reviewed are Neg Physical Exam Narrative GENERAL: Well-nourished, well-developed male patient, afebrile. SKIN: Focused skin assessment warm/dry. HEAD: Normocephalic. Atraumatic EYES: No scleral icterus. No injection or drainage. NECK: Supple, trachea midline. No JVD or lymphadenopathy. CARDIOVASCULAR: Regular rate and rhythm without murmurs, gallops, or rubs. RESPIRATORY: Breath sounds equal bilaterally. No accessory muscle use. Lungs sounds are clear to auscultation. GASTROINTESTINAL: Abdomen soft, non-tender, nondistended. MUSCULOSKELETAL: No cyanosis, or edema. Patient has Velcro splint to right wrist. BACK: Nontender without obvious deformity. No CVA tenderness. Data Data Last Documented VS Vital Signs Date Time Temp Pulse Resp B/P (MAP) Pulse Ox O2 Delivery O2 Flow Rate FiO2 10/17/16 20:08 65 18 128/78 (95) 99 Room Air 10/17/16 17:28 98.7 Orders Orders Wrist, Complete ([id number]) (10/17/16 ) Splint Or Brace Apply/Monitor (10/17/16 20:56) Mandatory Outpatient Referral (10/17/16 20:56) [facility] Medical Decision Making Medical Screen Exam Complete: Yes Emergency Medical Condition: Yes Medical Record Reviewed: Yes Interpretation(s) x-ray right hand - CONCLUSION: Nondisplaced hairline fracture of the right navicular carpal bone. Differential Diagnosis Withdrawal from benzodiazepines versus medical clearance versus wrist fracture versus sprain Narrative Course 26 year old male presents back to the emergency department for concerns that he had a seizure while withdrawing from Xanax. He states last Xanax was 3 days ago. Patient appears well on my exam. He had full workup yesterday Including a negative head CT. Labs showed no acute abnormality. I discussed the case with attending physician, Dr. Campbell, who recommends discharge home with a short-term prescription for Valium. X-ray of the right wrist is ordered and pending. X-ray of the right wrist shows Nondisplaced hairline fracture of the right navicular carpal bone. Patient is placed in a thumb spica splint to the right hand. He is instructed to follow-up with a hand surgeon. I stressed to him the importance of following up with a hand surgeon as avascular necrosis is common with the scaphoid. He verbalizes agreement and understanding of this. Diagnosis Primary Impression: Scaphoid fracture, wrist, closed Qualified Codes: S62.001A - Unspecified fracture of navicular [scaphoid] bone of right wrist, initial encounter for closed fracture Additional Impression: Withdrawal complaint Referrals: Hand Surgeon [facility] Patient Instructions: Benzodiazepine Abuse (ED), General Instructions, Wrist Fracture in Adults (ED) Additional Instructions: Make sure you follow-up with a hand surgeon for your right wrist fracture. If not, you could get avascular necrosis and chronic issues with your hand. Wear splint. Elevate. Take Valium as directed as needed for withdrawal. Follow-up with [facility] Campos. Return to the emergency department for any acute worsening of symptoms. Med/Other Pt SpecificInfo: Prescription(s) given Scripts Diazepam (Valium) 5 Mg Tab 5 MG PO BID Y for WITHDRAWAL, #5 TAB 0 Refills Prov: Pankaj Campbell MD 10/17/16 Disposition: 01 DISCHARGE HOME Condition: Stable Lisa Escoto Oct 17, 2016 20:28
--- NOTE | 2016-10-17 20:55 | RADRPT ---
EXAM DATE/TIME: 10/17/2016 20:30 [facility] COMPARISON: WRIST RIGHT COMPLETE ([id number]), October 14, 2016, 11:12. INDICATIONS : Right wrist pain after seizure MEDICAL HISTORY : seizures SURGICAL HISTORY : None. ENCOUNTER: Initial ACUITY: 3 days PAIN SCORE: 6/10 LOCATION: Right Wrist FINDINGS: Three view examination of the right wrist demonstrates a nondisplaced hairline fracture of the navicu lar carpal bone. Radiocarpal joint is otherwise intact. The carpal bones are in normal alignment. T he joint spaces are maintained. Bony mineralization is normal. CONCLUSION: Nondisplaced hairline fracture of the right navicular carpal bone. Akshat Ivan MD on October 17, 2016 at 20:52 Board Certified Radiologist. This report was verified electronically.
[2016-10-17] MEDS ORDERED: DIAZ5 PO (20:59)
[2016-10-17 21:36] VITALS: BP 122/88
[2016-10-17] MEDS ORDERED: ACETAMINOPHEN/HYDROcodone 325 MG/5 MG TAB PO ONE (21:45)
[2016-10-18] MEDS ORDERED: XANA2TAB2 PO (01:30)
[2016-10-18] MEDS ORDERED: CHLO25CA9 PO (02:28)
== END 2016-10-17 22:09 | disposition home or self-care (01) ==
LOC: NEPD 17:26
DX: S62.001A Unspecified fracture of navicular [scaphoid] bone of right wrist, initial encounter for closed fracture (principal); F41.8 Other specified anxiety disorders; F17.210 Nicotine dependence, cigarettes, uncomplicated; F11.20 Opioid dependence, uncomplicated; G40.909 Epilepsy, unspecified, not intractable, without status epilepticus; X58.XXXA Exposure to other specified factors, initial encounter
CPT/HCPCS: 73110; 99283; L3808

== ENCOUNTER 2016-10-18 01:19 | Emergency (ER) | payer OTHER ==
[~2016-10-18] VITALS: Ht 180.3 cm; Wt 85.0 kg
[~2016-10-18 01:19] MED LIST changes: +DIAZ5 PO; -GABA600T PO; -GABA800T PO; -IBUP800T23 PO; +METH40TA2 PO; -MOME17I EACH NARE
[2016-10-18 01:30] VITALS: BP 107/68; PULSE 65; RESP 16; TEMP 99.5; O2SAT 98
[2016-10-18] MEDS ORDERED: XANA2TAB2 PO (01:30)
[2016-10-18] MEDS ORDERED: SODIUM CHLORIDE 0.9% FLUSH 10 ML FLUSH IVF PRN (01:30)
[2016-10-18] MEDS ORDERED: LORazepam 2 MG/ML VIAL IVS ONE (01:30)
[2016-10-18 01:31] VITALS: BP 135/78; PULSE 88; RESP 16; TEMP 99.5; O2SAT 96
[2016-10-18 01:47] LABS: AUTOMATED NEUTROPHIL # 5.4 TH/MM3 (1.8-7.7); BASOPHIL % 0.6 % (0.0-2.0); EOSINOPHIL # 0.3 TH/MM3 (0-0.4); EOSINOPHIL % 3.3 % (0.0-4.0); HEMATOCRIT 34.8 % (39.0-51.0); HEMO FLAGS DIFF FINAL; LYMPH % 18.2 % (9.0-44.0); LYMPHOCYTE # 1.4 TH/MM3 (1.0-4.8); MEAN CELL VOLUME 86.6 FL (80.0-100.0); MEAN CORPUSCULAR HEMOGLOBIN 28.7 PG (27.0-34.0); MEAN CORPUSCULAR HGB CONC 33.2 % (32.0-36.0); MONO % 7.9 % (0.0-8.0); PLATELET COUNT 161 TH/MM3 (150-450); RED BLOOD COUNT 4.02 MIL/MM3 (4.50-5.90); RED CELL DISTRIBUTION WIDTH 13.1 % (11.6-17.2); WHITE BLOOD COUNT 7.8 TH/MM3 (4.0-11.0)
--- NOTE | 2016-10-18 02:04 | PD ---
HPI Chief Complaint: Seizure Time Seen by Provider: 01:27 Travel History International Travel<30 days: No Contact w/Intl Traveler<30days: No Traveled to known affect area: No History of Present Illness HPI The patient is a 26-year-old male who presents to the emergency department for seizure. The patient states he was taking Xanax on a daily basis until several days ago when he tried to stop taking Xanax abruptly. The patient then had a seizure, was evaluated in the emergency department and prescribed Valium. However, the patient was unable to get his Valium filled at the pharmacy and subsequently had another seizure. The patient does have a history of chronic pain for which she takes methadone. He denies any acute focal deficits. Symptoms are moderate, exacerbated after he stopped taking Xanax, and alleviated with benzodiazepines yesterday. PFSH Past Medical History Anxiety: Yes Depression: Yes Cardiovascular Problems: Yes (PALPITATIONS) Diminished Hearing: No Neurologic: Yes (NERVE PAIN, TBI ) Seizures: Yes Tetanus Vaccination: Unknown Social History Alcohol Use: No Tobacco Use: Yes (1/2 ppd) Substance Use: Yes (METHADONE, opiates dependent ) Allergies-Medications (Allergen,Severity, Reaction): Coded Allergies: No Known Allergies (Unverified , 10/17/16) Reported Meds & Prescriptions Reported Meds & Active Scripts Active Valium (Diazepam) 5 Mg Tab 5 Mg PO BID PRN Reported Xanax (Alprazolam) 2 Mg Tab 2 Mg PO Q8H PRN Methadose (Methadone HCl) 40 Mg Tab 160 Mg PO DAILY Review of Systems Except as stated in HPI: all other systems reviewed are Neg Neurologic: Positive: Seizures Physical Exam Narrative GENERAL: Awake, alert, nontoxic-appearing 26-year-old male who appears his stated age and is in no acute respiratory distress. SKIN: Focused skin assessment warm/dry. HEAD: Atraumatic. Normocephalic. EYES: Pupils equal and round. No injection or drainage. ENT: No nasal bleeding or discharge. Mucous membranes pink and moist. NECK: Trachea midline. No JVD. CARDIOVASCULAR: Regular rate and rhythm. No murmur appreciated. RESPIRATORY: No accessory muscle use. Clear to auscultation. Breath sounds equal bilaterally. GASTROINTESTINAL: Abdomen soft, non-tender, nondistended. MUSCULOSKELETAL: Right upper extremity is in a sugar tong splint with thumb spica. NEUROLOGICAL: Awake and alert. No obvious cranial nerve deficits. Motor grossly within normal limits. Normal speech. Nonfocal. Oriented 4. PSYCHIATRIC: Appropriate mood and affect; insight and judgment normal. Data Data Last Documented VS Vital Signs Date Time Temp Pulse Resp B/P (MAP) Pulse Ox O2 Delivery O2 Flow Rate FiO2 10/18/16 01:31 99.5 88 16 135/78 (97) 96 Orders Orders Complete Blood Count With Diff (10/18/16 01:28) Basic Metabolic Panel (Bmp) (10/18/16 01:28) Blood Glucose (10/18/16:28) Ecg Monitoring (10/18/16:28) Iv Access Insert/Monitor (10/18/16:28) Oximetry (10/18/16:28) Sodium Chloride 0.9% Flush (Ns Flush) (10/18/16 01:30) Lorazepam Inj (Ativan Inj) (10/18/16 01:30) Labs Laboratory Tests Test 10/18/16 01:35 White Blood Count 7.8 TH/MM3 Red Blood Count 4.02 MIL/MM3 Hemoglobin 11.6 GM/DL Hematocrit 34.8 % Mean Corpuscular Volume 86.6 FL Mean Corpuscular Hemoglobin 28.7 PG Mean Corpuscular Hemoglobin Concent 33.2 % Red Cell Distribution Width 13.1 % Platelet Count 161 TH/MM3 Mean Platelet Volume 10.9 FL Neutrophils (%) (Auto) 70.0 % Lymphocytes (%) (Auto) 18.2 % Monocytes (%) (Auto) 7.9 % Eosinophils (%) (Auto) 3.3 % Basophils (%) (Auto) 0.6 % Neutrophils # (Auto) 5.4 TH/MM3 Lymphocytes # (Auto) 1.4 TH/MM3 Monocytes # (Auto) 0.6 TH/MM3 Eosinophils # (Auto) 0.3 TH/MM3 Basophils # (Auto) 0.0 TH/MM3 CBC Comment DIFF FINAL Differential Comment Blood Urea Nitrogen 9 MG/DL Creatinine 1.16 MG/DL Random Glucose 135 MG/DL Calcium Level 9.0 MG/DL Sodium Level 141 MEQ/L Potassium Level 3.4 MEQ/L Chloride Level 105 MEQ/L Carbon Dioxide Level 28.2 MEQ/L Anion Gap 8 MEQ/L Estimat Glomerular Filtration Rate 77 ML/MIN MDM Medical Decision Making Medical Screen Exam Complete: Yes Emergency Medical Condition: Yes Medical Record Reviewed: Yes Interpretation(s) Laboratory Tests Test 10/18/16 01:35 White Blood Count 7.8 TH/MM3 Red Blood Count 4.02 MIL/MM3 Hemoglobin 11.6 GM/DL Hematocrit 34.8 % Mean Corpuscular Volume 86.6 FL Mean Corpuscular Hemoglobin 28.7 PG Mean Corpuscular Hemoglobin Concent 33.2 % Red Cell Distribution Width 13.1 % Platelet Count 161 TH/MM3 Mean Platelet Volume 10.9 FL Neutrophils (%) (Auto) 70.0 % Lymphocytes (%) (Auto) 18.2 % Monocytes (%) (Auto) 7.9 % Eosinophils (%) (Auto) 3.3 % Basophils (%) (Auto) 0.6 % Neutrophils # (Auto) 5.4 TH/MM3 Lymphocytes # (Auto) 1.4 TH/MM3 Monocytes # (Auto) 0.6 TH/MM3 Eosinophils # (Auto) 0.3 TH/MM3 Basophils # (Auto) 0.0 TH/MM3 CBC Comment DIFF FINAL Differential Comment Blood Urea Nitrogen 9 MG/DL Creatinine 1.16 MG/DL Random Glucose 135 MG/DL Calcium Level 9.0 MG/DL Sodium Level 141 MEQ/L Potassium Level 3.4 MEQ/L Chloride Level 105 MEQ/L Carbon Dioxide Level 28.2 MEQ/L Anion Gap 8 MEQ/L Estimat Glomerular Filtration Rate 77 ML/MIN Differential Diagnosis Differential diagnosis includes benzodiazepine withdrawal seizure, breakthrough seizure, hyponatremia, noncompliance, polysubstance abuse. Narrative Course IV was established, labs are drawn and sent, and the patient was placed on cardiac telemetry monitoring and continuous pulse oximetry monitoring. The patient was administered Ativan 1 mg intravenously and 1 L of IV fluids. Labs are essentially unremarkable. The patient appears to have benzodiazepine withdrawal, was in ministered Ativan intravenously in the emergency department, will be administered Librium and placed on tapering dose of Librium for the next several days. The patient is advised to follow-up this to [facility]. Diagnosis Primary Impression: Withdrawal complaint Additional Impression: Benzodiazepine withdrawal Qualified Codes: F13.230 - Sedative, hypnotic or anxiolytic dependence with withdrawal, uncomplicated Patient Instructions: General Instructions Additional Instructions: Librium as directed. Follow-up with your primary physician. Return if symptoms worsen or progress. Med/Other Pt SpecificInfo: Prescription(s) given Scripts Chlordiazepoxide HCl (Chlordiazepoxide HCl) 25 Mg Capsule 1 TAB PO DIRECTED, #20 Prov: Ash Taylor MD 10/18/16 Disposition: 01 DISCHARGE HOME Condition: Stable Ash Taylor MD Oct 18, 2016 02:04
[2016-10-18 02:05] LABS: BICARBONATE 28.2 MEQ/L (21.0-32.0); POTASSIUM 3.4 MEQ/L (3.5-5.1)
[2016-10-18] MEDS ORDERED: CHLO25CA9 PO (02:28)
[2016-10-18 05:33] VITALS: BP 112/58; PULSE 57; RESP 16; O2SAT 98
== END 2016-10-18 07:04 | disposition home or self-care (01) ==
LOC: NEPE 01:19
DX: F13.230 Sedative, hypnotic or anxiolytic dependence with withdrawal, uncomplicated (principal)
CPT/HCPCS: 80048; 85025; 96374; 99284; J2060

== ENCOUNTER 2016-10-28 10:55 | Emergency (ER) | payer OTHER ==
[~2016-10-28] VITALS: Ht 180.3 cm; Wt 90.0 kg
[~2016-10-28 10:55] MED LIST changes: +CHLO25CA9 PO; +XANA2TAB2 PO
[2016-10-28 11:44] VITALS: BP 131/85; PULSE 70; RESP 18; TEMP 98.7; O2SAT 98
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
== END 2016-10-28 12:17 | disposition left against medical advice (07) ==
LOC: NEPK 10:55
DX: M25.531 Pain in right wrist (principal); F17.200 Nicotine dependence, unspecified, uncomplicated; Z86.59 Personal history of other mental and behavioral disorders; Z86.79 Personal history of other diseases of the circulatory system; Z86.69 Personal history of other diseases of the nervous system and sense organs
CPT/HCPCS: 99281

== ENCOUNTER 2016-11-07 15:14 | Emergency (ER) | payer OTHER ==
[~2016-11-07] VITALS: Ht 180.3 cm; Wt 83.0 kg
[2016-11-07 15:17] VITALS: BP 123/67; PULSE 73; RESP 15; TEMP 98.4; O2SAT 98
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
== END 2016-11-07 16:24 | disposition home or self-care (01) ==
LOC: NEPK 15:14
DX: S62.001D Unspecified fracture of navicular [scaphoid] bone of right wrist, subsequent encounter for fracture with routine healing (principal); X58.XXXD Exposure to other specified factors, subsequent encounter
CPT/HCPCS: 99283; L3808

== ENCOUNTER 2017-01-20 22:51 | Emergency (ER) | payer OTHER ==
[~2017-01-20 22:51] MED LIST changes: -CHLO25CA9 PO; -DIAZ5 PO; -XANA2TAB2 PO
[2017-01-20 22:53] VITALS: BP 146/73; PULSE 76; RESP 18; TEMP 98.1; O2SAT 100
[2017-01-20] MEDS ORDERED: ONDANSETRON ODT 4 MG TAB PO ONE (23:30)
[2017-01-20] MEDS ORDERED: IBUPROFEN 600 MG TAB PO ONE (23:30)
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
== END 2017-01-21 00:03 | disposition home or self-care (01) ==
LOC: NEPC 22:51
DX: F11.23 Opioid dependence with withdrawal (principal); R42 Dizziness and giddiness; F43.10 Post-traumatic stress disorder, unspecified; F41.9 Anxiety disorder, unspecified; R56.9 Unspecified convulsions; Z79.899 Other long term (current) drug therapy; Z72.0 Tobacco use
CPT/HCPCS: 99283

== ENCOUNTER 2017-03-04 15:44 | Emergency (ER) | payer OTHER ==
[~2017-03-04] VITALS: Ht 180.3 cm; Wt 86.0 kg
[2017-03-04 15:45] VITALS: BP 123/81; PULSE 106; RESP 16; TEMP 98.2; O2SAT 99
--- NOTE | 2017-03-04 16:30 | PD ---
HPI Chief Complaint: Medication Refill Request Time Seen by Provider: 16:21 Travel History International Travel<30 days: No Contact w/Intl Traveler<30days: No Traveled to known affect area: No History of Present Illness HPI 26-year-old male presents to the emergency department requesting a refill on Suboxone. He has been out of his Suboxone for 2 days. He tried following up with his primary care provider, Dr. Rutherford, this morning for refill and the office was closed. He reports feeling a little jittery. Denies emergent medical complaints. Denies chest pain, shortness of breath, abdominal pain, vomiting, fevers. Onset and duration 2 days. Severity of symptoms are mild. Leaving factors or medication refill. No known aggravating factors. Denies significant past medical history. No known allergies. Dr. Rutherford his primary care provider. Has no other medical complaints. No other modifying factors or associated signs and symptoms. History Social History Alcohol Use: No Tobacco Use: Yes Allergies-Medications (Allergen,Severity, Reaction): Coded Allergies: No Known Allergies (Unverified , 11/07/16) Reported Meds & Prescriptions Reported Meds & Active Scripts Active Reported Methadose (Methadone HCl) 40 Mg Tab 130 Mg PO DAILY Review of Systems Except as stated in HPI: all other systems reviewed are Neg Physical Exam Narrative GENERAL: Well-nourished, well-developed male patient, in no acute distress SKIN: Warm and dry. HEAD: Atraumatic. Normocephalic. EYES: Pupils equal and round. No scleral icterus. No injection or drainage. ENT: Mucosa pink and moist. Airway patent. NECK: Trachea midline. CARDIOVASCULAR: Regular rate. RESPIRATORY: No accessory muscle use. GASTROINTESTINAL: Flat. MUSCULOSKELETAL: No obvious deformities. No clubbing. No cyanosis. No edema. NEUROLOGICAL: Awake and alert. Oriented 3. No obvious cranial nerve deficits. Motor grossly within normal limits. Normal speech. PSYCHIATRIC: Appropriate mood and affect; insight and judgment normal. Data Data Last Documented VS Vital Signs Date Time Temp Pulse Resp B/P (MAP) Pulse Ox O2 Delivery O2 Flow Rate FiO2 03/04/17 15:45 98.2 106 16 123/81 (95) 99 MDM Medical Screen Exam Complete: Yes Emergency Medical Condition: No Differential Diagnosis Medication refill Narrative Course 26-year-old male requesting medication refill for Suboxone. Vital signs are stable and the patient is stable for outpatient follow-up and treatment. The patient has no urgent or emergent medical complaints. There is no emergent or urgent medical need at this time. I instructed the patient to follow up with their primary care provider. A medical screening exam was performed: At the time of evaluation the presenting medical condition was determined not to be of an emergent nature. The patient was given the option of receiving additional care, but declined. Patient was given options for additional community resources from which to obtain care. The Patient Has Been advised to seek medical attention for their presenting complaint. The patient has been advised to return to the ER at any time if an emergent condition develops. Primary Impression: Encounter for medical screening examination Condition: Stable Soumya Epstein Mar 04, 2017 16:30
== END 2017-03-04 16:39 | disposition left against medical advice (07) ==
LOC: NEPD 15:44
DX: Z76.0 Encounter for issue of repeat prescription (principal); Z79.899 Other long term (current) drug therapy; Z72.0 Tobacco use
CPT/HCPCS: 99281

== ENCOUNTER 2017-05-01 18:33 | Emergency (ER) | payer OTHER ==
[2017-05-01 18:50] VITALS: BP 181/77; PULSE 104; RESP 15; TEMP 98.2; O2SAT 98
[2017-05-01] MEDS ORDERED: BACT800T5 PO (20:42)
[2017-05-01] MEDS ORDERED: CEPH-460 PO (20:42)
--- NOTE | 2017-05-01 20:43 | PD ---
HPI Chief Complaint: Skin Problem Time Seen by Provider: 20:31 Travel History International Travel<30 days: No Contact w/Intl Traveler<30days: No Traveled to known affect area: No History of Present Illness HPI This is a 27-year-old male here with a possible wound infection to his right thumb. He reports he sustained an abrasion to the thumb while at work 2 days ago. The area has become increasingly more red and painful today. He denies any drainage. No fever or chills. He can flex and extend the finger. Normal sensation. Symptom severity is mild to moderate. No aggravating or alleviating factors. PFSH Past Medical History Anxiety: Yes (PTSD) Depression: Yes Cardiovascular Problems: Yes (PALPITATIONS) Diminished Hearing: No Neurologic: Yes (NERVE PAIN, TBI ) Seizures: Yes Social History Alcohol Use: No Tobacco Use: Yes Substance Use: Yes (METHADONE, opiates dependent ) Allergies-Medications (Allergen,Severity, Reaction): Coded Allergies: No Known Allergies (Unverified , 11/07/16) Reported Meds & Prescriptions Reported Meds & Active Scripts Active Reported Methadose (Methadone HCl) 40 Mg Tab 130 Mg PO DAILY Review of Systems Except as stated in HPI: all other systems reviewed are Neg General / Constitutional: No: Fever Physical Exam Narrative GENERAL: Alert and well-appearing 27-year-old male SKIN: Warm and dry. Approximately 3 cm abrasion with overlying scab to the dorsal aspect of the left thumb. Mild amount of surrounding erythema. No induration or fluctuance. HEAD: Normocephalic. EYES: No scleral icterus. No injection or drainage. NECK: Supple MUSCULOSKELETAL: No cyanosis. Left hand: See skin noted above. Patient is able to flex and extend the thumb without difficulty. Normal sensation. Brisk cap refill. Data Data Last Documented VS Vital Signs Date Time Temp Pulse Resp B/P (MAP) Pulse Ox O2 Delivery O2 Flow Rate FiO2 05/01/17 18:50 98.2 104 15 181/77 (111) 98 MDM Medical Decision Making Medical Screen Exam Complete: Yes Emergency Medical Condition: Yes Differential Diagnosis Infection, cellulitis, abscess, tenosynovitis unlikely Narrative Course 27-year-old male here with mild wound infection to the left thumb. The digit is neurovascularly intact. Patient be treated with Bactrim and Keflex. Diagnosis Primary Impression: Wound infection Referrals: Primary Care Physician Additional Instructions: Antibiotics as directed. Follow-up with your primary doctor for recheck. Return if he had new or worsening symptoms. Scripts Cephalexin (Keflex) 500 Mg Cap 500 MG PO Q6H for Infection for 10 Days, #40 CAP 0 Refills Prov: Tory Cota 05/01/17 Sulfamethoxazole-Trimethoprim (Bactrim DS) 800-160 Mg Tab 1 TAB PO BID for Infection, #20 TAB 0 Refills Prov: Tory Cota 05/01/17 Disposition: 01 DISCHARGE HOME Condition: Stable Tory Cota May 01, 2017 20:43
== END 2017-05-01 21:08 | disposition home or self-care (01) ==
LOC: NEPK 18:33
DX: S60.312A Abrasion of left thumb, initial encounter (principal); L08.9 Local infection of the skin and subcutaneous tissue, unspecified; F43.10 Post-traumatic stress disorder, unspecified; F32.9 Major depressive disorder, single episode, unspecified; X58.XXXA Exposure to other specified factors, initial encounter; Y99.0 Civilian activity done for income or pay; Z72.0 Tobacco use; Z79.899 Other long term (current) drug therapy
CPT/HCPCS: 99283

== ENCOUNTER 2017-05-27 13:36 | Emergency (ER) | payer OTHER ==
[~2017-05-27] VITALS: Ht 177.8 cm; Wt 75.0 kg
[~2017-05-27 13:36] MED LIST changes: +BACT800T5 PO; +CEPH-460 PO
[2017-05-27 13:40] VITALS: BP 147/77; PULSE 89; RESP 18; TEMP 98.1; O2SAT 99
[2017-05-27] MEDS ORDERED: SUBO8MIS SL (15:17)
[2017-05-27 15:23] VITALS: BP 116/58; PULSE 85; RESP 18; TEMP 98.5; O2SAT 100
[2017-05-27] MEDS ORDERED: KETOROLAC TROMETHAMINE 60 MG/2 ML (IM) VIAL IM ONE (16:15)
[2017-05-27] MEDS ORDERED: AMOXICILLIN 875 MG TAB PO ONE (16:15)
[2017-05-27] MEDS ORDERED: AMOX500C PO (16:17)
[2017-05-27] MEDS ORDERED: PERI0.126 SWISH-SPIT (16:17)
--- NOTE | 2017-05-27 16:18 | PD ---
HPI Chief Complaint: Oral / Dental Pain or Problem Time Seen by Provider: 15:24 Travel History International Travel<30 days: No Contact w/Intl Traveler<30days: No Traveled to known affect area: No History of Present Illness HPI 27-year-old male presents to the emergency department with complaint of severe pain to the area where he had a tooth extracted 2 days ago. He is supposed to be taking clindamycin, but says he cannot afford the antibiotic. He also has a prescription for Percocet and says he is on Suboxone and cannot take Percocet. Denies fever, vomiting. Says he can feel swelling to his gums. Rates pain 8/ 10. Describes it as throbbing sensation. Has been taking Tylenol and ibuprofen for symptom management. Pain is constant. No known relieving factors. Primary care provider is the [place]. No known allergies. Denies significant past medical history of history. Has no other medical complaints. No other modifying factors or associated signs and symptoms. PFSH Past Medical History Anxiety: Yes (PTSD) Depression: Yes Cardiovascular Problems: Yes (PALPITATIONS) Diminished Hearing: No Neurologic: Yes (NERVE PAIN, TBI ) Seizures: Yes Tetanus Vaccination: < 5 Years Influenza Vaccination: No Past Surgical History Oral Surgery: Yes Social History Alcohol Use: No Tobacco Use: No Substance Use: No (METHADONE, opiates dependent ) Allergies-Medications (Allergen,Severity, Reaction): Coded Allergies: No Known Allergies (Unverified Adverse Reaction, Unknown, 05/27/17) Reported Meds & Prescriptions Reported Meds & Active Scripts Active Peridex Liq (Chlorhexidine Gluconate (Mouth) Liq) 0.12% Soln 15 Ml SWISH-SPIT BID 10 Days Amoxicillin 500 Mg Cap 500 Mg PO BID 10 Days Reported Suboxone Sublingual Film (Buprenorphine-Naloxone Sublingual Film) 8-2 Mg Film 2 Film SL DAILY Unique ID number required: Review of Systems Except as stated in HPI: all other systems reviewed are Neg Physical Exam Narrative GENERAL: Well-nourished, well-developed male patient, in no acute distress; afebrile, nontoxic-appearing SKIN: Warm and dry. HEAD: Atraumatic. Normocephalic. No facial edema, erythema, tenderness on palpation. No lymphadenopathy. EYES: Pupils equal and round. No scleral icterus. No injection or drainage. ENT: Mucosa pink and moist. No erythema or exudates. No uvular edema. No uvular , palatal, or tonsillar deviation. Airway patent. MOUTH: Mucous membranes moist, no lesions, tongue and gums appear normal. Left upper molar is absent and gingiva to the area is minimally edematous and without erythema; no drainage noted; sutures intact. No obvious abscess noted. NECK: Trachea midline. No lymphadenopathy. CARDIOVASCULAR: Regular rate. RESPIRATORY: No accessory muscle use. GASTROINTESTINAL: Flat. MUSCULOSKELETAL: No obvious deformities. No clubbing. No cyanosis. No edema. NEUROLOGICAL: Awake and alert. Oriented 3. No obvious cranial nerve deficits. Motor grossly within normal limits. Normal speech. PSYCHIATRIC: Appropriate mood and affect; insight and judgment normal. Data Data Last Documented VS Vital Signs Date Time Temp Pulse Resp B/P (MAP) Pulse Ox O2 Delivery O2 Flow Rate FiO2 05/27/17 16:28 05/27/17 15:23 98.5 85 18 100 Room Air Orders Orders Amoxicillin (Trimox) (05/27/17 16:15) Ketorolac Inj (Toradol Inj) (05/27/17 16:15) Ed Discharge Order (05/27/17 16:18) MDM Medical Decision Making Medical Screen Exam Complete: Yes Emergency Medical Condition: Yes Medical Record Reviewed: Yes Differential Diagnosis Dental infection post tooth extraction, dry socket, dental abscess Narrative Course 27-year-old male with pain to the surgical area status post tooth extraction 2 days ago. He is afebrile and nontoxic-appearing. Denies fever, vomiting. He has not filled his prescription for clindamycin because he cannot afford it. There are no signs of infection to the tooth extraction area. Sutures are intact. Amoxicillin and Toradol administered in the ER. Amoxicillin, Peridex mouth rinse prescribed for home. Instructed patient to follow-up with dentist. Instructed patient to follow up with primary care provider. Patient verbalizes understanding and agreement with treatment plan. Patient is medically cleared and stable for discharge. Discussed reasons to return to the emergency department. Patient agrees with treatment plan. The patients vital signs are stable and the patient is stable for outpatient follow-up and treatment. Patient discharged home, stable and in no acute distress. Diagnosis Primary Impression: S/P tooth extraction Referrals: Dentist Primary Care Physician Patient Instructions: General Instructions, Tooth Extraction (ED) Additional Instructions: Complete full course of antibiotics Ibuprofen or Tylenol as directed and as needed to reduce pain and inflammation Use Peridex as directed for oral hygiene Warm or cool compresses to the affected area Follow-up with dentist Follow-up with primary care provider Return to emergency department immediately with worsening of symptoms Med/Other Pt SpecificInfo: Prescription(s) given Scripts Chlorhexidine Gluconate (Mouth) Liq (Peridex Liq) 0.12% Soln 15 ML SWISH-SPIT BID for 10 Days, #300 ML 0 Refills Prov: Soumya Epstein 05/27/17 Amoxicillin (Amoxicillin) 500 Mg Cap 500 MG PO BID for Infection for 10 Days, #20 CAP 0 Refills Prov: Soumya Epstein 05/27/17 Disposition: 01 DISCHARGE HOME Condition: Stable Soumya Epstein May 27, 2017 16:18
== END 2017-05-27 16:29 | disposition home or self-care (01) ==
LOC: NEPD 13:36
DX: K08.89 Other specified disorders of teeth and supporting structures (principal); F43.10 Post-traumatic stress disorder, unspecified; F32.9 Major depressive disorder, single episode, unspecified; R56.9 Unspecified convulsions; Z87.820 Personal history of traumatic brain injury; Z79.899 Other long term (current) drug therapy
CPT/HCPCS: 96372; 99283; J1885

== ENCOUNTER 2017-06-27 19:06 | Emergency (ER) | payer OTHER ==
[~2017-06-27] VITALS: Ht 180.3 cm; Wt 80.0 kg
[~2017-06-27 19:06] MED LIST changes: +AMOX500C PO; -BACT800T5 PO; -CEPH-460 PO; -METH40TA2 PO; +PERI0.126 SWISH-SPIT; +SUBO8MIS SL
[2017-06-27 19:19] VITALS: BP 143/79; PULSE 99; RESP 18; TEMP 99.1; O2SAT 98
--- NOTE | 2017-06-27 19:40 | PD ---
HPI Chief Complaint: Depression Time Seen by Provider: 19:28 Travel History International Travel<30 days: No Contact w/Intl Traveler<30days: No Traveled to known affect area: No History of Present Illness HPI 27-year-old white male presents emergency department requesting psychiatric evaluation of his PTSD. He states that he is 60% service-connected through the [facility]. He was last seen 2 weeks ago at the [facility]. He is not currently taking any medications. He states that he has stopped his medications quite some time ago. He states that he does not like taking medications. He reports having problems functioning and doing daily activities because of his PTSD. He denies any suicidal homicidal ideation. No toxic ingestions. He does smoke cigarettes, drinks alcohol, and smokes marijuana on occasion. Patient states that he has had a history of opiate problems in the past. Symptoms are moderate to severe. No alleviating factors. No exacerbating factors. He denies any medical complaints PFSH Past Medical History Anxiety: Yes (PTSD) Depression: Yes Diminished Hearing: No Neurologic: Yes (NERVE PAIN, TBI ) Seizures: Yes Tetanus Vaccination: < 5 Years Influenza Vaccination: No Past Surgical History Oral Surgery: Yes Other Surgery: Yes (plastic removed from face) Social History Alcohol Use: Yes (occasionally) Tobacco Use: Yes Substance Use: No Allergies-Medications (Allergen,Severity, Reaction): Coded Allergies: No Known Allergies (Unverified Adverse Reaction, Unknown, 06/27/17) Reported Meds & Prescriptions Reported Meds & Active Scripts Active Peridex Liq (Chlorhexidine Gluconate (Mouth) Liq) 0.12% Soln 15 Ml SWISH-SPIT BID 10 Days Amoxicillin 500 Mg Cap 500 Mg PO BID 10 Days Reported Suboxone Sublingual Film (Buprenorphine-Naloxone Sublingual Film) 8-2 Mg Film 2 Film SL DAILY Unique ID number required: Review of Systems General / Constitutional: No: Fever Eyes: No: Visual changes HENT: No: Headaches Cardiovascular: No: Chest Pain or Discomfort Respiratory: No: Shortness of Breath Gastrointestinal: No: Abdominal Pain Genitourinary: No: Dysuria Musculoskeletal: No: Pain Skin: No Rash Neurologic: No: Weakness Psychiatric: Positive: Anxiety, Depression, Disorder of Thought, Mood Disorder , Substance Abuse, No: Suicidal Ideations, Homicidal Ideation Endocrine: No: Polydipsia Hematologic/Lymphatic: No: Easy Bruising Physical Exam Narrative GENERAL: Well-nourished, well-developed patient. SKIN: Warm and dry. HEAD: Normocephalic and atraumatic. EYES: No scleral icterus. No injection or drainage. ENT: No nasal drainage noted. Mucous membranes pink. Airway patent. NECK: Supple, trachea midline. Moves head freely without obvious discomfort. CARDIOVASCULAR: Regular rate and rhythm without murmurs, gallops, or rubs. RESPIRATORY: Breath sounds equal bilaterally. No accessory muscle use. GASTROINTESTINAL: Abdomen soft, non-tender, nondistended. EXTREMITIES: No cyanosis or edema. BACK: Nontender without obvious deformity. No CVA tenderness. NEURO: Patient is alert and oriented. no sensorimotor deficits. Nonfocal. Normal speech. PSYCH: No delusions. No auditory or visual hallucinations. Data Data Last Documented VS Vital Signs Date Time Temp Pulse Resp B/P (MAP) Pulse Ox O2 Delivery O2 Flow Rate FiO2 06/27/17 19:19 99.1 99 18 143/79 (100) 98 Orders Orders Complete Blood Count With Diff (06/27/17 19:35) Comprehensive Metabolic Panel (06/27/17 19:35) Thyroid Stimulating Hormone (06/27/17 19:35) Drug Screen, Random Urine (06/27/17 19:35) Alcohol (Ethanol) (06/27/17 19:35) Labs Laboratory Tests Test 06/27/17 19:30 [facility] Medical Decision Making Medical Screen Exam Complete: Yes Emergency Medical Condition: Yes Medical Record Reviewed: Yes Differential Diagnosis MDM: High Differential diagnoses: Schizophrenia, schizoaffective disorder, bipolar, anxiety, depression, adjustment reaction, mood disorder NOS, ODD, depressive disorder NOS, dementia, dementia with agitation, psychosis NOS, substance induced mood disorder, DMDD, Asperger syndrome, infection,electrolyte abnormality, malingering. Narrative Course Mental health screening discussed with the patient. Psychiatric screen ordered. At 1950 I was advised that the patient had left AWOL. The patient is not suicidal or homicidal. He does not meet criteria for Gomez act. Diagnosis Primary Impression: Medical clearance for psychiatric admission Additional Impression: Left against medical advice Condition: Stable Kaiser Fernandez June 27, 2017 19:40
[2017-06-27 19:57] LABS: BASOPHIL % 0.5 % (0.0-2.0); EOSINOPHIL # 0.1 TH/MM3 (0-0.4); EOSINOPHIL % 0.7 % (0.0-4.0); HEMOGLOBIN 11.8 GM/DL (13.0-17.0); LYMPH % 22.5 % (9.0-44.0); LYMPHOCYTE # 1.6 TH/MM3 (1.0-4.8); MEAN CELL VOLUME 84.5 FL (80.0-100.0); MEAN CORPUSCULAR HEMOGLOBIN 29.2 PG (27.0-34.0); MEAN CORPUSCULAR HGB CONC 34.6 % (32.0-36.0); MEAN PLATELET VOLUME 10.9 FL (7.0-11.0); MONO % 7.8 % (0.0-8.0); MONOCYTE # 0.6 TH/MM3 (0-0.9); NEUT % 68.5 % (16.0-70.0); PLATELET COUNT 183 TH/MM3 (150-450); RED BLOOD COUNT 4.03 MIL/MM3 (4.50-5.90); RED CELL DISTRIBUTION WIDTH 14.3 % (11.6-17.2); WHITE BLOOD COUNT 7.3 TH/MM3 (4.0-11.0)
[2017-06-27 20:11] LABS: ALBUMIN 4.7 GM/DL (3.4-5.0); AST (GOT) 38 U/L (15-37); BLOOD UREA NITROGEN 8 MG/DL (7-18); CALCIUM 9.6 MG/DL (8.5-10.1); CHLORIDE 106 MEQ/L (98-107); GLOMERULAR FILTRATION RATE 91 ML/MIN (>89); GLUCOSE,RANDOM 105 MG/DL (74-106); SODIUM (NA) 141 MEQ/L (136-145)
[2017-06-27 20:23] LABS: ALKALINE PHOSPHATASE 122 U/L (45-117); ALT (GPT) 94 U/L (12-78); TOTAL BILIRUBIN ADULT 0.6 MG/DL (0.2-1.0); TOTAL PROTEIN 8.1 GM/DL (6.4-8.2)
== END 2017-06-27 20:00 | disposition left against medical advice (07) ==
LOC: NEPD 19:06
DX: F43.10 Post-traumatic stress disorder, unspecified (principal); F12.90 Cannabis use, unspecified, uncomplicated; F17.210 Nicotine dependence, cigarettes, uncomplicated; Z79.899 Other long term (current) drug therapy
CPT/HCPCS: 80053; 80307; 84443; 85025; 99283

== ENCOUNTER 2017-07-22 15:21 | Emergency (ER) | payer OTHER ==
[~2017-07-22] VITALS: Ht 177.8 cm; Wt 77.3 kg
[2017-07-22 15:27] VITALS: BP 136/65; PULSE 77; RESP 18; TEMP 98.3; O2SAT 98
[2017-07-22] MEDS ORDERED: PENICILLIN V POTASSIUM 500 MG TAB PO ONE (16:30)
[2017-07-22] MEDS ORDERED: NAPROXEN 500 MG TAB PO ONE (16:30)
[2017-07-22] MEDS ORDERED: NAPR500T2 PO (16:45)
[2017-07-22] MEDS ORDERED: PENI500T PO (16:45)
--- NOTE | 2017-07-22 16:46 | PD ---
HPI Chief Complaint: Oral / Dental Pain or Problem Time Seen by Provider: 16:04 Travel History International Travel<30 days: No Contact w/Intl Traveler<30days: No Traveled to known affect area: No History of Present Illness HPI 27-year-old presents emergency department complaining of dental pain. Symptoms been ongoing for the past couple days. His left lower bicuspid has a large cavity and tenderness. He states his pain was excruciating and he popped it with the toothpick and some blood came out he felt a little bit better. No fevers. Otherwise had been feeling generally well and healthy. History Past Medical History Medical History: Denies Significant Hx Social History Alcohol Use: Yes (occasionally) Tobacco Use: Yes Allergies-Medications (Allergen,Severity, Reaction): Coded Allergies: No Known Allergies (Unverified Adverse Reaction, Unknown, 07/22/17) Reported Meds & Prescriptions Reported Meds & Active Scripts Active Peridex Liq (Chlorhexidine Gluconate (Mouth) Liq) 0.12% Soln 15 Ml SWISH-SPIT BID 10 Days Amoxicillin 500 Mg Cap 500 Mg PO BID 10 Days Reported Suboxone Sublingual Film (Buprenorphine-Naloxone Sublingual Film) 8-2 Mg Film 2 Film SL DAILY Unique ID number required: Review of Systems Except as stated in HPI: all other systems reviewed are Neg Physical Exam Narrative General: Well-appearing 27-year-old man, no acute distress CV: Warm and well perfused Respiratory: Normal rate and effort HEENT: There is a large cavity in the left for bicuspid. The tooth is exquisitely sensitive to percussion. There is no erythema or swelling of the gumline itself. There is no facial asymmetry. Multiple other areas of decay. Data Data Last Documented VS Vital Signs Date Time Temp Pulse Resp B/P (MAP) Pulse Ox O2 Delivery O2 Flow Rate FiO2 07/22/17 15:27 98.3 77 18 136/65 (88) 98 Orders Orders Penicillin V Potassium (Veetids) (07/22/17 16:30) Naproxen (Naprosyn) (07/22/17 16:30) MDM Medical Decision Making Medical Screen Exam Complete: Yes Emergency Medical Condition: Yes Differential Diagnosis Apical abscess, decay, cavity, other Narrative Course Medical decision making Is a 27-year-old male presents to the emergency department complaining of dental pain. Some drainage. Likely apical abscess, now draining. Looks well. Placed on antibiotics, NSAIDs. Patient is on Suboxone. Recommend outpatient follow-up with dentistry. Diagnosis Primary Impression: Pain, dental Additional Instructions: Take antibiotics as prescribed. Use naproxen as needed for pain. Follow-up with a dentist for further evaluation. Return to the emergency department for any new or worsening symptoms. Med/Other Pt SpecificInfo: Prescription(s) given Scripts Naproxen (Naproxen) 500 Mg Tab 500 MG PO BID, #20 TAB 0 Refills Prov: Reuben Singh MD 07/22/17 Penicillin V Potassium (Penicillin V Potassium) 500 Mg Tab 500 MG PO Q8H for Infection for 7 Days, #21 TAB 0 Refills Prov: Reuben Singh MD 07/22/17 Disposition: 01 DISCHARGE HOME Condition: Stable Reuben Singh MD July 22, 2017 16:46
== END 2017-07-22 16:50 | disposition home or self-care (01) ==
LOC: NEPD 15:21
DX: K08.89 Other specified disorders of teeth and supporting structures (principal); Z72.0 Tobacco use
CPT/HCPCS: 99283